=== PATIENT | female | born 1990 | race Caucasian/White ===

== ENCOUNTER 2017-09-12 17:47 | Inpatient (IN) | payer OTHER ==
[2017-09-12 20:46] LABS: ADD MAN DIFF? NO
[2017-09-12 20:48] LABS: WHITE BLOOD COUNT 7.4 10^3/ul (4.8-10.8)
[2017-09-12 20:48] LABS: BASOPHILS % 0.3 % (0.0-2.0); EOSINOPHILS # 0.2 10^3/ul (0.0-0.5); HEMOGLOBIN 11.9 g/dl (12.0-16.0); LYMPHOCYTES % 26.8 % (15.0-51.0); MEAN CORPUSCULAR HEMOGLOBIN 31.1 pg (29.0-33.0); MEAN CORPUSCULAR VOLUME 91.4 fl (82.0-101.0); MEAN PLATELET VOLUME 11.5 fl (7.4-10.4); MONOCYTE # 0.5 10^3/ul (0.3-0.9); MONOCYTES % 6.7 % (0.0-11.0); NEUTROPHIL # 4.8 10^3/ul (1.6-7.5); NEUTROPHILS % 63.9 % (39.0-77.0); PLATELET COUNT 290 10^3/UL (140-415); RED BLOOD COUNT 3.83 10^6/ul (4.20-5.40); RED CELL DISTRIBUTION WIDTH 14.6 % (11.5-14.5)
[2017-09-12 20:56] LABS: ADD UMIC NO; UR ASCORBIC ACID 20 mg/dL (NEGATIVE); UR BILIRUBIN (Dip) NEGATIVE (NEGATIVE); UR BLOOD (Dip) NEGATIVE (NEGATIVE); UR CLARITY SLIGHTLY CLOUDY (CLEAR); UR COLOR YELLOW (YELLOW); UR GLUCOSE (Dip) NEGATIVE (NEGATIVE); UR KETONES (Dip) NEGATIVE (NEGATIVE); UR LEUKOCYTE ESTERASE (Dip) NEGATIVE Leu/ul (NEGATIVE); UR NITRITE (Dip) NEGATIVE (NEGATIVE); UR RBC 0 /HPF (0-5); UR SQUAMOUS EPITHELIAL CELL MANY /HPF (FEW); UR TOTAL PROTEIN (Dip) NEGATIVE (NEGATIVE); UR UROBILINOGEN (Dip) 1+ mg/dL (NEGATIVE); UR WBC 1 /HPF (0-5)
[2017-09-12] MEDS: LACTATED RINGER'S 1,000 ML IV ×2 (21:30→23:02)
[2017-09-12] MEDS ORDERED: ACETAMINOPHEN 325 MG TAB PO (23:00)
[2017-09-13] MEDS: MAGNESIUM SULFATE 4 GM/100 ML 100 ML IV (00:29)
[2017-09-13] MEDS: BETAMET NA PHOS/AC(6 MG/ML) 5ML INJ IM (00:31)
[2017-09-13] MEDS: MAGNESIUM SULFATE 20 GM/500 ML 500 ML IV ×3 (01:17→21:50)
[2017-09-13 03:32] LABS: INR 0.96; PROTIME 12.9 Sec (11.9-14.9)
[2017-09-13 03:33] LABS: PARTIAL THROMBOPLASTIN TIME 30.3 Sec (25.0-35.0)
[2017-09-13 03:41] LABS: ALANINE AMINOTRANSFERASE 24 IU/L (13-69); ALBUMIN 3.3 g/dl (3.3-4.9); ALBUMIN/GLOBULIN RATIO 0.97; ALKALINE PHOSPHATASE 145 IU/L (42-121); ANION GAP 17 (8-16); ASPARTATE AMINO TRANSFERASE 20 IU/L (15-46); BILIRUBIN,INDIRECT 0.2 mg/dl (0-1.1); BILIRUBIN,TOTAL 0.2 mg/dl (0.2-1.3); BLOOD UREA NITROGEN 9 mg/dl (7-20); CARBON DIOXIDE 21 mmol/L (21-31); CHLORIDE 107 mmol/L (97-110); CREATININE 0.52 mg/dl (0.44-1.00); GLUCOSE 71 mg/dl (70-220); SODIUM 141 mmol/L (135-144); TOTAL PROTEIN 6.7 g/dl (6.1-8.1)
[2017-09-13 08:25] LABS: MAGNESIUM 4.8 mg/dl (1.7-2.5)
[2017-09-13] MEDS: ONDANSETRON 4 MG INJ IV ×2 (09:42→18:00)
[2017-09-13] MEDS: PRENATAL VITAMIN PO (09:42)
[2017-09-13] MEDS: LACTATED RINGER'S 1,000 ML IV (12:05)
[2017-09-13 13:26] LABS: MAGNESIUM 5.1 mg/dl (1.7-2.5)
[2017-09-13 16:48] LABS: RAPID PLASMA REAGIN NONREACTIVE (NR)
[2017-09-13 19:07] LABS: MAGNESIUM 5.5 mg/dl (1.7-2.5)
[2017-09-13] MEDS: PROGESTERONE 100 MG CAP VAG (21:50)
[2017-09-14] MEDS: LACTATED RINGER'S 1,000 ML IV ×2 (00:29→14:08)
[2017-09-14] MEDS: BETAMET NA PHOS/AC(6 MG/ML) 5ML INJ IM (00:36)
[2017-09-14 01:30] LABS: MAGNESIUM 4.4 mg/dl (1.7-2.5)
[2017-09-14 07:02] LABS: MAGNESIUM 4.7 mg/dl (1.7-2.5)
[2017-09-14] MEDS: PRENATAL VITAMIN PO (09:00)
[2017-09-14 12:20] LABS: MAGNESIUM 4.3 mg/dl (1.7-2.5)
[2017-09-14] MEDS: MAGNESIUM SULFATE 20 GM/500 ML 500 ML IV (18:13)
[2017-09-14] MEDS: PROGESTERONE 100 MG CAP VAG (22:46)
[2017-09-15] MEDS: MAGNESIUM SULFATE 20 GM/500 ML 500 ML IV (03:00)
[2017-09-15] MEDS: LACTATED RINGER'S 1,000 ML IV (03:17)
[2017-09-15] MEDS: PRENATAL VITAMIN PO (08:48)
[2017-09-15] MEDS: NIFEdipine 10 MG CAP PO ×2 (12:24→18:00)
[2017-09-15] MEDS ORDERED: NIFEdipine 10 MG CAP PO (12:30)
== END 2017-09-15 21:10 | disposition home or self-care (01) | DRG 778 ==
LOC: OBT 17:47 → PP1 09-14 18:56 → L-D 17:48 → OBT 21:38 → L-D 21:38
DX: O60.03 Preterm labor without delivery, third trimester (principal); O26.873 Cervical shortening, third trimester; Z3A.31 31 weeks gestation of pregnancy; O34.219 Maternal care for unspecified type scar from previous cesarean delivery; O09.213 Supervision of pregnancy with history of pre-term labor, third trimester
CPT/HCPCS: 76817; 76818; 80053; 81001; 81003; 83735; 85025; 85610; 85730; 86592; 86850; 86900; 86901; 87086